=== PATIENT | female | born 1980 | race Caucasian/White ===

== ENCOUNTER → 2018-07-13 11:51 | Outpatient (CLI) | payer OTHER, SELFPAY | PROVIDERS: PCP Registered Nurse | DX: Z23 Encounter for immunization (principal) | CPT/HCPCS: 90471; 90686 ==

== ENCOUNTER → 2018-11-05 07:16 | Outpatient (CLI) | payer OTHER, SELFPAY ==
[2018-11-05 08:02] LABS: Add Manual Diff / Slide Review NO; Basophils Absolute Auto 0 /uL (0-100); Basophils Percent Auto 0.5 % (0-2); Eosinophils Absolute Auto 100 /uL (0-450); Hematocrit 38.6 % (36-46); Hemoglobin 13.2 g/dL (12.0-16.0); Lymphocytes Absolute Auto 2300 /uL (1100-4500); Lymphocytes Percent Auto 43.5 % (25-40); Mean Corpuscular HGB Conc 34.2 % (30-36); Mean Corpuscular Hemoglobin 31.6 PG (26-34); Mean Corpuscular Volume 92.4 fL (80-100); Monocytes Absolute Auto 400 /uL (0-900); Monocytes Percent Auto 7.7 % (3-14); Neutrophils Absolute Auto 2400 /uL (1500-7000); Neutrophils Percent Auto 46.3 % (50-75); Platelet Count 305 X10^3/uL (150-400); Red Blood Cell Count 4.17 X10^6/uL (4.0-5.2); Red Cell Distribution Width 12.8 % (11.6-14.8); White Blood Cell Count 5.2 X10^3/uL (4.5-11.0)
[2018-11-05 08:55] LABS: Alanine Aminotransferase 19 IU/L (9-52); Albumin 4.4 g/dL (3.5-5.0); Albumin Globulin Ratio 1.4 (1.0-2.8); Alkaline Phosphatase 39 U/L (38-126); Aspartate Aminotransferase 25 IU/L (14-36); Bilirubin Total 0.7 mg/dL (0.2-1.3); Blood Urea Nitrogen 14 mg/dL (7-17); Calcium 9.5 mg/dL (8.4-10.2); Carbon Dioxide 27 mmol/L (22-32); Chloride 102 mmol/L (98-107); Cholesterol 222 mg/dL (140-199); Estimated Glomerular Filt Rate > 60.0 mL/min (>60); Globulin 3.2 g/dL (1.7-4.1); Glucose 85 mg/dL (70-100); HDL Cholesterol 54 mg/dL (40-60); HEMOLYSIS < 15 (0-50); LDL Cholesterol Calculated 144 mg/dL (<100); Potassium 4.2 mmol/L (3.4-5.1); Sodium 138 mmol/L (137-145); Total Protein 7.6 g/dL (6.3-8.2); Triglycerides 122 mg/dL (35-150)
[2018-11-05 09:04] LABS: Vitamin D 25 Hydroxy (D3) 40.1 ng/mL (30.0-100.0)
[2018-11-05 09:20] LABS: Thyroid Stimulating Hormone 3.24 uIU/mL (0.47-4.68)
== END ==
PROVIDERS: PCP Registered Nurse; Visit Provider Registered Nurse
DX: Z00.00 Encounter for general adult medical examination without abnormal findings (principal); R53.83 Other fatigue
CPT/HCPCS: 36415; 80053; 80061; 82306; 84443; 85025

== ENCOUNTER → 2019-07-21 18:21 | Outpatient (CLI) | payer OTHER, SELFPAY | PROVIDERS: PCP Registered Nurse | DX: Z23 Encounter for immunization (principal) | CPT/HCPCS: 90471; 90686 ==

== ENCOUNTER → 2020-07-12 | Outpatient (CLI) | payer OTHER, SELFPAY | PROVIDERS: PCP Registered Nurse; Referring Provider Internal Medicine; Visit Provider Internal Medicine | DX: Z23 Encounter for immunization (principal) | CPT/HCPCS: 90471; 90686 ==

== ENCOUNTER → 2020-10-17 13:31 | Outpatient (CLI) | payer OTHER, SELFPAY ==
[2020-10-17] MEDS: COVID-19 VACC(MODERNA-1)/PF 100 MCG/0.5 ML VIAL IM (13:37)
== END ==
PROVIDERS: Visit Provider Internal Medicine
DX: Z23 Encounter for immunization (principal)
CPT/HCPCS: 0011A; 91301

== ENCOUNTER → 2020-11-13 09:06 | Outpatient (CLI) | payer OTHER, SELFPAY ==
[2020-11-13] MEDS: COVID-19 VACC #2, MRNA(MOD) 100 MCG/0.5 ML VIAL IM (09:10)
== END ==
PROVIDERS: PCP Registered Nurse Diabetes Educator; Visit Provider Internal Medicine
DX: Z23 Encounter for immunization (principal)
CPT/HCPCS: 0012A; 91301

== ENCOUNTER → 2020-11-17 09:04 | Outpatient (CLI) | payer OTHER, SELFPAY ==
--- NOTE | 2020-11-17 09:06 | DI.MG.S_ITS ---
BILATERAL DIGITAL SCREENING MAMMOGRAM 3D/2D WITH CAD: 11/17/2020 CLINICAL: Routine screening. Family history of breast cancer. No prior exams were available for comparison. The tissue of both breasts is heterogeneously dense. This may lower the sensitivity of mammography. Current study was also evaluated with a Computer Aided Detection (CAD) system. There is a possible asymmetry in the right breast middle depth superior region seen on the mediolateral oblique view only with suggestion of architectural distortion associated with the asymmetry. No other significant masses, calcifications, or other findings are seen in either breast. IMPRESSION: INCOMPLETE: NEEDS ADDITIONAL IMAGING EVALUATION The possible asymmetry in the right breast is indeterminate. Additional views with possible ultrasound are recommended. This exam was interpreted at Station ID: [id number]. NOTE: For mammograms, a report in lay terms will be sent to the patient. Approximately 15% of breast malignancies will not be visualized mammographically. In the management of a palpable breast mass, a negative mammogram must not discourage biopsy of a clinically suspicious lesion. Electronically Signed By: Valeriano call/:11/19/2020 07:37:34 letter sent: Additional Imaging Needed ACR BI-RADS Category 0: Incomplete 3340F
== END ==
PROVIDERS: PCP Registered Nurse Diabetes Educator; Referring Provider Registered Nurse Diabetes Educator; Visit Provider Registered Nurse Diabetes Educator
DX: Z12.31 Encounter for screening mammogram for malignant neoplasm of breast (principal); Z80.3 Family history of malignant neoplasm of breast
CPT/HCPCS: 77063; 77067

== ENCOUNTER → 2020-11-27 07:13 | Outpatient (CLI) | payer OTHER, SELFPAY ==
[2020-11-27 08:06] LABS: Hematocrit 37.6 % (36-46); Hemoglobin 12.7 g/dL (12.0-16.0); Mean Corpuscular HGB Conc 33.8 % (30-36); Mean Corpuscular Hemoglobin 31.3 PG (26-34); Mean Corpuscular Volume 92.5 fL (80-100); Platelet Count 282 X10^3/uL (150-400); Red Blood Cell Count 4.07 X10^6/uL (4.0-5.2); Red Cell Distribution Width 12.5 % (11.6-14.8); White Blood Cell Count 5.1 X10^3/uL (4.5-11.0)
[2020-11-27 08:19] LABS: Alanine Aminotransferase 11 IU/L (<35); Albumin Globulin Ratio 1.3 (1.0-2.8); Alkaline Phosphatase 38 U/L (38-126); Aspartate Aminotransferase 21 IU/L (14-36); BUN Creatinine Ratio 22.4 (6-22); Bilirubin Total 0.5 mg/dL (0.2-1.3); Blood Urea Nitrogen 17 mg/dL (7-17); Calcium 9.2 mg/dL (8.4-10.2); Carbon Dioxide 30 mmol/L (22-32); Chloride 105 mmol/L (98-107); Cholesterol 216 mg/dL (140-199); Estimated Glomerular Filt Rate > 60.0 mL/min (>60); Glucose 91 mg/dL (70-100); HDL Cholesterol 60 mg/dL (40-60); HEMOLYSIS < 15 (0-50); LDL Cholesterol Calculated 141 mg/dL (<100); Potassium 3.8 mmol/L (3.4-5.1); Sodium 136 mmol/L (137-145); Triglycerides 75 mg/dL (35-150)
[2020-11-27 08:56] LABS: TSH w/ Reflex to FT4 2.45 uIU/mL (0.47-4.68)
== END ==
PROVIDERS: PCP Registered Nurse Diabetes Educator; Referring Provider Registered Nurse Diabetes Educator; Visit Provider Registered Nurse Diabetes Educator
DX: E78.5 Hyperlipidemia, unspecified (principal)
CPT/HCPCS: 36415; 80053; 80061; 84443; 85027

== ENCOUNTER → 2020-12-25 13:30 | Outpatient (CLI) | payer OTHER, SELFPAY ==
--- NOTE | 2020-12-25 | DI.MG.S_ITS ---
UNILATERAL RIGHT DIGITAL DIAGNOSTIC MAMMOGRAM 3D/2D WITH ADDITIONAL VIEWS: 12/25/2020 CLINICAL: Additional evaluation requested from prior study. Comparison is made to exam dated: 11/17/2020 [facility]. The tissue of right breast is heterogeneously dense. This may lower the sensitivity of mammography. With focal spot compression, and additional views, thepossible asymmetry in the right breast middle depth superior regionseen on screening mammography is less prominent, and partially resolves. No other significant masses or calcifications are seen in the breast. IMPRESSION: INCOMPLETE: NEEDS ADDITIONAL IMAGING EVALUATION Near complete resolution of screening mammography abnormality with additional views. Ultrasound evaluation to confirm resolution is recommended and was performed immediately following this exam. This exam was interpreted at Station ID: [id number]. NOTE: For mammograms, a report in lay terms will be sent to the patient. Approximately 15% of breast malignancies will not be visualized mammographically. In the management of a palpable breast mass, a negative mammogram must not discourage biopsy of a clinically suspicious lesion. Electronically Signed By: Reta lira/:12/25/2020 13:59:24 ACR BI-RADS Category 0: Incomplete 3340F
--- NOTE | 2020-12-25 13:34 | DI.US.S_ITS ---
LIMITED ULTRASOUND OF RIGHT BREAST AND AXILLA: 12/25/2020 CLINICAL: Additional evaluation requested from prior study. Comparison is made to exams dated: 12/25/2020 mammogram and 11/17/2020 mammogram - [facility]. Ultrasound of the right breast 11-1 o'clock, and axilla regions was performed. No significant abnormalities were seen sonographically in the right breast. Thickened focal fibrous tissue was found in the area of mammographic concern. IMPRESSION: NEGATIVE There is no sonographic abnormality and no sonographic evidence of malignancy. Normal overlapping fibrous tissue accounts for the mammographic appearance. Return to annual mammogram screening schedule is recommended. Findings and recommendations were conveyed to the patient at time of exam. This exam was interpreted at Station ID: [id number]. Electronically Signed By: Reta lira/:12/25/2020 14:32:45 letter sent: Normal Exam Ultrasound BI-RADS: 1 Negative
== END ==
PROVIDERS: PCP Registered Nurse Diabetes Educator; Referring Provider Registered Nurse Diabetes Educator; Visit Provider Registered Nurse Diabetes Educator
DX: R92.8 Other abnormal and inconclusive findings on diagnostic imaging of breast (principal)
CPT/HCPCS: 76642; 77065; G0279

== ENCOUNTER → 2021-07-23 | Outpatient (CLI) | payer OTHER, SELFPAY | PROVIDERS: PCP Registered Nurse Diabetes Educator; Referring Provider Internal Medicine; Visit Provider Internal Medicine | DX: Z23 Encounter for immunization (principal) | CPT/HCPCS: 90471; 90686 ==

== ENCOUNTER → 2021-08-23 09:19 | Outpatient (CLI) | payer OTHER, SELFPAY ==
[2021-08-23] MEDS: COVID-19 VACC #3, MRNA(MOD) 50 MCG/0.25 ML VIAL IM (09:22)
== END ==
PROVIDERS: PCP Registered Nurse Diabetes Educator; Visit Provider Internal Medicine
DX: Z23 Encounter for immunization (principal)
CPT/HCPCS: 0013A; 91301

== ENCOUNTER → 2022-04-12 08:08 | Outpatient (CLI) | payer OTHER, SELFPAY ==
[2022-04-12 09:03] LABS: Hematocrit 36.3 % (36-46); Hemoglobin 12.5 g/dL (12.0-16.0); Mean Corpuscular HGB Conc 34.5 % (30-36); Mean Corpuscular Hemoglobin 31.7 PG (26-34); Mean Corpuscular Volume 91.9 fL (80-100); Platelet Count 272 X10^3/uL (150-400); Red Blood Cell Count 3.95 X10^6/uL (4.0-5.2); White Blood Cell Count 4.3 X10^3/uL (4.5-11.0)
[2022-04-12 09:19] LABS: Alanine Aminotransferase 13 IU/L (<35); Albumin 4.4 g/dL (3.5-5.0); Albumin Globulin Ratio 1.5 (1.0-2.8); Alkaline Phosphatase 45 U/L (38-126); Aspartate Aminotransferase 26 IU/L (14-36); BUN Creatinine Ratio 15.8 (6-22); Bilirubin Total 0.7 mg/dL (0.2-1.3); Blood Urea Nitrogen 12 mg/dL (7-17); Calcium 8.8 mg/dL (8.4-10.2); Carbon Dioxide 29 mmol/L (22-32); Chloride 105 mmol/L (98-107); Cholesterol 211 mg/dL (140-199); Estimated Glomerular Filt Rate > 60 mL/min (>60); Globulin 2.9 g/dL (1.7-4.1); Glucose 92 mg/dL (70-100); HDL Cholesterol 55 mg/dL (40-60); HEMOLYSIS < 15 (0-50); LDL Cholesterol Calculated 141 mg/dL (<100); Potassium 3.8 mmol/L (3.4-5.1); Sodium 139 mmol/L (137-145); Total Protein 7.3 g/dL (6.3-8.2); Triglycerides 74 mg/dL (35-150)
== END ==
PROVIDERS: PCP Registered Nurse Diabetes Educator; Referring Provider Registered Nurse Diabetes Educator; Visit Provider Registered Nurse Diabetes Educator
DX: E78.5 Hyperlipidemia, unspecified (principal); Z83.49 Family history of other endocrine, nutritional and metabolic diseases
CPT/HCPCS: 36415; 80053; 80061; 84443; 85027

== ENCOUNTER → 2022-05-01 09:41 | Outpatient (CLI) | payer OTHER, SELFPAY ==
--- NOTE | 2022-05-01 | DI.MG.S_ITS ---
BILATERAL DIGITAL SCREENING MAMMOGRAM 3D/2D WITH CAD: 05/01/2022 CLINICAL: Routine screening. Family history of breast cancer. Comparison is made to exams dated: 12/25/2020 ultrasound, 12/25/2020 mammogram, and 11/17/2020 mammogram - [facility]. The tissue of both breasts is heterogeneously dense. This may lower the sensitivity of mammography. Current study was also evaluated with a Computer Aided Detection (CAD) system. No significant masses, calcifications, or other findings are seen in either breast. There has been no significant interval change. IMPRESSION: NEGATIVE There is no mammographic evidence of malignancy. A 1 year screening mammogram is recommended. Based on Tyrer-Cuzick model (a risk assessment model), the patient's lifetime risk is 70.7% and her 10 year risk is 29.0%. If a patient has an elevated risk, a more comprehensive evaluation should be considered and/or a referral to a genetic counselor. The [employer], [employer], and NCCN Guidelines advise the consideration of Breast MRI as an adjunct to screening mammography in patients whose Lifetime risk to develop breast cancer is 20% or higher. This exam was interpreted at Station ID: [id number]. NOTE: For mammograms, a report in lay terms will be sent to the patient. Approximately 15% of breast malignancies will not be visualized mammographically. In the management of a palpable breast mass, a negative mammogram must not discourage biopsy of a clinically suspicious lesion. Electronically Signed By: Valeriano reeves/carlos:05/01/2022 11:20:46 letter sent: Normal Exam ACR BI-RADS Category 1: Negative 3341F
== END ==
PROVIDERS: PCP Registered Nurse Diabetes Educator; Referring Provider Registered Nurse Diabetes Educator; Visit Provider Registered Nurse Diabetes Educator
DX: Z12.31 Encounter for screening mammogram for malignant neoplasm of breast (principal); Z80.3 Family history of malignant neoplasm of breast
CPT/HCPCS: 77063; 77067

== ENCOUNTER → 2022-07-08 08:43 | Outpatient (CLI) | payer OTHER, SELFPAY | PROVIDERS: PCP Registered Nurse Diabetes Educator; Referring Provider Internal Medicine; Visit Provider Internal Medicine | DX: Z23 Encounter for immunization (principal) | CPT/HCPCS: 90471; 90686 ==

== ENCOUNTER → 2023-05-06 07:49 | Outpatient (CLI) | payer OTHER, SELFPAY ==
--- NOTE | 2023-05-06 | DI.MG.S_ITS ---
BILATERAL DIGITAL SCREENING MAMMOGRAM 3D/2D WITH CAD: 05/06/2023 CLINICAL: Routine screening. Family history of breast cancer. Comparison is made to exams dated: 05/01/2022 mammogram, 12/25/2020 ultrasound, 12/25/2020 mammogram, and 11/17/2020 mammogram - . Both breasts are heterogeneously dense, which may obscure small masses (category c / 51-75% glandular tissue). Current study was also evaluated with a Computer Aided Detection (CAD) system. No significant masses, calcifications, or other findings are seen in either breast. There has been no significant interval change. IMPRESSION: NEGATIVE There is no mammographic evidence of malignancy. A 1 year screening mammogram is recommended. Lifetime risk is significantly elevated. Recommend MRI supplemental screening. Based on Tyrer-Cuzick model (a risk assessment model), the patient's lifetime risk is 70.3% and her 10 year risk is 30.1%. If a patient has an elevated risk, a more comprehensive evaluation should be considered and/or a referral to a genetic counselor. The [place] [employer], [employer], and NCCN Guidelines advise the consideration of Breast MRI as an adjunct to screening mammography in patients whose Lifetime risk to develop breast cancer is 20% or higher. This exam was interpreted at Station ID: [id number]. NOTE: For mammograms, a report in lay terms will be sent to the patient. Approximately 15% of breast malignancies will not be visualized mammographically. In the management of a palpable breast mass, a negative mammogram must not discourage biopsy of a clinically suspicious lesion. Electronically Signed By: Crow Diggs M.D. lc/:05/06/2023 08:27:52 letter sent: Normal Exam ACR BI-RADS Category 1: Negative 3341F
== END ==
PROVIDERS: PCP Registered Nurse Diabetes Educator; Referring Provider Registered Nurse Diabetes Educator; Visit Provider Registered Nurse Diabetes Educator
DX: Z12.31 Encounter for screening mammogram for malignant neoplasm of breast (principal); Z80.3 Family history of malignant neoplasm of breast
CPT/HCPCS: 77063; 77067

== ENCOUNTER → 2023-08-13 | Outpatient (CLI) | payer OTHER, SELFPAY | PROVIDERS: PCP Registered Nurse Diabetes Educator; Referring Provider Family Medicine; Visit Provider Family Medicine | DX: Z23 Encounter for immunization (principal) | CPT/HCPCS: 90471; 90686 ==

== ENCOUNTER → 2023-11-10 11:33 | Outpatient (CLI) | payer OTHER, SELFPAY ==
--- NOTE | 2023-11-10 12:00 | DI.MRI.S_ITS ---
BREAST MRI OF BOTH BREASTS: 11/10/2023 CLINICAL: Family history of malignant neoplasm of breast. PROCEDURE: MR BREAST BI WO/W CON INDICATIONS: High risk breast cancer TECHNIQUE: The patient was placed prone in a dedicated breast imaging coil. Precontrast axial STIR and 3D FLASH without fat saturation sequences were obtained. Both before and after bolus injection of contrast, sequential 1-minute axial 3D FLASH with fat saturation sequences for 3 time points, with subtraction images and maximum intensity projections (MIP's) generated. Delayed sagittal FLASH images with fat saturation were also obtained. Computer-aided detection, including computer algorithm analysis of MRI image data for lesion detection and characterization, pharmacokinetic analysis, with further physician review for interpretation, was performed. COMPARISON: Mammogram 05/06/2023, 05/01/2022, 12/25/2020. FINDINGS: Image quality: Diagnostic. There is scattered amount of fibroglandular tissue. There is mild and symmetric background parenchymal enhancement. Right breast: No suspicious enhancement or lymphadenopathy. Left breast: No suspicious enhancement or lymphadenopathy. IMPRESSION: NEGATIVE No MRI evidence of malignancy. Recommend continued annual screening. Future imaging is recommended as follows: 05/06/2024 screening mammogram. This exam was interpreted at Station ID: [id number]. Electronically Signed By: Kasey Bello M.D., PH.D eb/:11/10/2023 22:37:17 ACR BI-RADS Category 1: Negative 3341F
== END ==
PROVIDERS: PCP Registered Nurse Diabetes Educator; Referring Provider Registered Nurse Diabetes Educator; Visit Provider Registered Nurse Diabetes Educator
DX: Z12.39 Encounter for other screening for malignant neoplasm of breast (principal); Z80.3 Family history of malignant neoplasm of breast
CPT/HCPCS: 77049; A9579

== ENCOUNTER → 2024-08-15 | Outpatient (CLI) | payer OTHER, SELFPAY | PROVIDERS: PCP Registered Nurse Diabetes Educator; Referring Provider Internal Medicine; Visit Provider Internal Medicine | DX: Z23 Encounter for immunization (principal) | CPT/HCPCS: 90471; 90656 ==

== ENCOUNTER → 2024-09-23 07:38 | Outpatient (CLI) | payer OTHER, SELFPAY ==
[2024-09-23 08:29] LABS: Add Manual Diff / Slide Review NO; Basophils Absolute Auto 0 /uL (0-100); Basophils Percent Auto 0.7 % (0-2); Eosinophils Absolute Auto 0 /uL (0-450); Eosinophils Percent Auto 0.4 % (2-4); Hematocrit 38.4 % (36-46); Lymphocytes Absolute Auto 1600 /uL (1100-4500); Lymphocytes Percent Auto 24.2 % (25-40); Mean Corpuscular Hemoglobin 31.2 PG (26-34); Mean Corpuscular Volume 91.8 fL (80-100); Monocytes Absolute Auto 300 /uL (0-900); Monocytes Percent Auto 4.8 % (3-14); Neutrophils Absolute Auto 4500 /uL (1500-7000); Neutrophils Percent Auto 69.9 % (50-75); Platelet Count 398 X10^3/uL (150-400); Red Blood Cell Count 4.18 X10^6/uL (4.0-5.2); Red Cell Distribution Width 13.2 % (11.6-14.8); White Blood Cell Count 6.4 X10^3/uL (4.5-11.0)
[2024-09-23 09:02] LABS: Alanine Aminotransferase 17 IU/L (<35); Albumin 4.2 g/dL (3.5-5.0); Albumin Globulin Ratio 1.4 (1.0-2.8); Alkaline Phosphatase 56 U/L (38-126); Aspartate Aminotransferase 28 IU/L (14-36); BUN Creatinine Ratio 17.7 (6-22); Bilirubin Total 0.7 mg/dL (0.2-1.3); Blood Urea Nitrogen 14 mg/dL (7-17); Calcium 9.8 mg/dL (8.4-10.2); Carbon Dioxide 25 mmol/L (22-32); Chloride 104 mmol/L (98-107); Cholesterol 248 mg/dL (140-199); Estimated Glomerular Filt Rate > 60 mL/min (>60); Glucose 101 mg/dL (70-100); HDL Cholesterol 74 mg/dL (40-60); HEMOLYSIS < 15 (0-50); LDL Cholesterol Calculated 158 mg/dL (<100); Potassium 4.3 mmol/L (3.4-5.1); Sodium 135 mmol/L (137-145); Total Protein 7.2 g/dL (6.3-8.2); Triglycerides 80 mg/dL (35-150)
[2024-09-23 09:13] LABS: Vitamin D 25 Hydroxy (D3) 36.5 ng/mL (30.0-100.0)
[2024-09-23 09:28] LABS: TSH w/ Reflex to FT4 1.48 uIU/mL (0.47-4.68)
== END ==
PROVIDERS: PCP Registered Nurse Diabetes Educator; Referring Provider Registered Nurse Diabetes Educator; Visit Provider Registered Nurse Diabetes Educator
DX: Z13.21 Encounter for screening for nutritional disorder (principal); Z13.9 Encounter for screening, unspecified; E78.5 Hyperlipidemia, unspecified
CPT/HCPCS: 36415; 80053; 80061; 82306; 84443; 85025

== ENCOUNTER → 2024-10-07 15:03 | Outpatient (CLI) | payer OTHER, SELFPAY ==
--- NOTE | 2024-10-07 15:04 | DI.MG.S_ITS ---
BILATERAL DIGITAL SCREENING MAMMOGRAM 3D/2D WITH CAD: 10/07/2024 CLINICAL: Routine screening. Family history of breast cancer. Comparison is made to exams dated: 05/06/2023 mammogram, 05/01/2022 mammogram, 11/17/2020 mammogram, and 12/25/2020 mammogram - [facility]. The breasts are heterogeneously dense, which may obscure small masses (category c / 51-75% glandular tissue). Current study was also evaluated with a Computer Aided Detection (CAD) system. There is an asymmetry in the right breast posterior depth lateral region seen on the craniocaudal view only. No other significant masses, calcifications, or other findings are seen in either breast. IMPRESSION: INCOMPLETE: NEED ADDITIONAL IMAGING EVALUATION The asymmetry in the right breast is indeterminate. A diagnostic mammogram and ultrasound is recommended. Based on Tyrer-Cuzick model (a risk assessment model), the patient's lifetime risk is 24.9% and her 10 year risk is 4.6%. If a patient has an elevated risk, a more comprehensive evaluation should be considered and/or a referral to a genetic counselor. The [place] [employer], [employer] [employer], and NCCN Guidelines advise the consideration of Breast MRI as an adjunct to screening mammography in patients whose Lifetime risk to develop breast cancer is 20% or higher. This exam was interpreted at Station ID: [id number]. NOTE: For mammograms, a report in lay terms will be sent to the patient. Approximately 15% of breast malignancies will not be visualized mammographically. In the management of a palpable breast mass, a negative mammogram must not discourage biopsy of a clinically suspicious lesion. Electronically Signed By: Kasey Bello M.D., Ph.D. eb/:10/10/2024 04:23:54 letter sent: Additional Imaging Needed ACR BI-RADS Category 0: Incomplete: Need Additional Imaging Evaluation
== END ==
PROVIDERS: PCP Registered Nurse Diabetes Educator; Referring Provider Registered Nurse Diabetes Educator; Visit Provider Registered Nurse Diabetes Educator
DX: Z12.31 Encounter for screening mammogram for malignant neoplasm of breast (principal); Z80.3 Family history of malignant neoplasm of breast; R92.333 Mammographic heterogeneous density, bilateral breasts
CPT/HCPCS: 77063; 77067

== ENCOUNTER → 2024-11-02 08:42 | Outpatient (CLI) | payer OTHER, SELFPAY ==
--- NOTE | 2024-11-02 08:44 | DI.US.S_ITS ---
LIMITED ULTRASOUND OF RIGHT BREAST AND AXILLA: 11/02/2024 CLINICAL: Patient returns today to evaluate a focal asymmetry in the right breast. Comparison is made to exams dated: 11/02/2024 mammogram, 10/07/2024 mammogram, 11/10/2023 breast MRI, 05/06/2023 mammogram, and 05/01/2022 mammogram - [facility]. Color flow and real-time ultrasound of the right breast 9-10 o'clock, and axilla regions were performed. Ramirez scale images of the real-time examination were reviewed. There is a 0.5 cm x 0.2 cm x 0.5 cm oval mass in the right breast at 9 o'clock middle depth 9 cm from the nipple. This oval mass is hypoechoic. This correlates as an incidental finding. Color flow imaging demonstrates that there is no vascularity present. No significant abnormalities were seen sonographically in the right axilla. IMPRESSION: PROBABLY BENIGN The 0.5 cm x 0.2 cm x 0.5 cm oval mass in the right breast has a differential diagnosis of clustered cysts, a complicated cyst, or a lymph node and is probably benign. There is no abnormality seen in the right breast to correspond with the mammography finding which likely represents normal fibroglandular tissue. A follow-up right mammogram and an ultrasound in 6 months is recommended to demonstrate stability. Findings and recommendations were conveyed to the patient during today's evaluation. This exam was interpreted at Station ID: [id number]. Electronically Signed By: Valeriano Arreguin M.D. at/:11/02/2024 10:24:47 letter sent: Followup Recommended ACR BI-RADS Category 3: Probably Benign
--- NOTE | 2024-11-02 08:44 | DI.MG.S_ITS ---
UNILATERAL RIGHT DIGITAL DIAGNOSTIC MAMMOGRAM 3D/2D WITH ADDITIONAL VIEWS: 11/02/2024 CLINICAL: Additional evaluation requested from prior study. Comparison is made to exams dated: 10/07/2024 mammogram, 05/06/2023 mammogram, 05/01/2022 mammogram, and 12/25/2020 [facility]. The breasts are heterogeneously dense, which may obscure small masses (category c / 51-75% glandular tissue). The previously described possible asymmetry in the right breast posterior depth lateral region seen on the craniocaudal view only. This is not seen in additional views. This is less prominent. No other significant masses or calcifications are seen in the breast. IMPRESSION: INCOMPLETE: NEED ADDITIONAL IMAGING EVALUATION The possible asymmetry in the right breast resembles fibroglandular tissue and is indeterminate. An ultrasound is recommended for further evaluation and is scheduled to immediately follow this examination. Based on Tyrer-Cuzick model (a risk assessment model), the patient's lifetime risk is 24.9% and her 10 year risk is 4.6%. If a patient has an elevated risk, a more comprehensive evaluation should be considered and/or a referral to a genetic counselor. The [place] [employer], [employer], and NCCN Guidelines advise the consideration of Breast MRI as an adjunct to screening mammography in patients whose Lifetime risk to develop breast cancer is 20% or higher. This exam was interpreted at Station ID: [id number]. NOTE: For mammograms, a report in lay terms will be sent to the patient. Approximately 15% of breast malignancies will not be visualized mammographically. In the management of a palpable breast mass, a negative mammogram must not discourage biopsy of a clinically suspicious lesion. Electronically Signed By: Valeriano Arreguin M.D. aty/:11/02/2024 09:35:48 letter sent: Additional Imaging Needed ACR BI-RADS Category 0: Incomplete: Need Additional Imaging Evaluation
== END ==
PROVIDERS: PCP Registered Nurse Diabetes Educator; Referring Provider Registered Nurse Diabetes Educator; Visit Provider Registered Nurse Diabetes Educator
DX: R92.8 Other abnormal and inconclusive findings on diagnostic imaging of breast (principal); R92.333 Mammographic heterogeneous density, bilateral breasts; N63.15 Unspecified lump in the right breast, overlapping quadrants
CPT/HCPCS: 76642; 77065; G0279

== ENCOUNTER 2024-11-15 08:54 | Outpatient (RCR) | payer OTHER, SELFPAY ==
--- NOTE | 2024-11-15 13:21 | PT.OIE ---
Current Diagnoses Feeling of incomplete bladder emptying (11/15/24) Urgency of urination (11/15/24) Unspecified symptoms and signs involving the genitourinary system (11/15/24) Past Medical History (Last Updated 09/30/24 @ 16:02 by WILL Werner) Acne (1995) At high risk for breast cancer Chicken pox (1983) Dyslipidemia History of malignant melanoma Impaired fasting blood sugar Vaginal delivery Past Surgical History (Last Reviewed 09/30/24 @ 15:49 by WILL Werner) Anesthesia Status post myringotomy with insertion of tube (1984) Visit Care Team Role Provider Type WILL Werner Attending Provider Advanced Director Data Processing Family Provider Primary Care Provider Referring Provider Specialty: Medical Address: [address] [place] [address], [facility] Email: [email or web address] Therapy Initial Evaluation PT-OP-A Visit Information Start: 11/15/24 08:24 Freq: Status: Active Protocol: Document 11/15/24 09:00 [facility] (Rec: 11/15/24 09:30 [facility] [id number]) Out-Patient Physical Therapy Visit Information Visit Information Visit Type Initial Evaluation Visit Start Time 09:02 Visit Stop Time 09:45 Visit Number 1 Evaluation Information Evaluation Date 11/15/24 PT-OP-B Current Condition Start: 11/15/24 08:24 Freq: Status: Active Protocol: Document 11/15/24 09:00 [facility] (Rec: 11/15/24 09:30 [facility] [id number]) Current Condition History of Current Condition Onset Date post her second vaginal delivery but within the last 2 -3 years Current Complaints not able to fully empty her bladder, hx of urinary urgency History of Current Condition pt notes she isn't feeling full bladder emptying , she will feel like she is fully emptied and she will stand up and then need to void more She urinates frequently approx every hour and has for a long time. She drinks fluids throughout the day. This bothers her if she is on a long car drive or where there is not toilets around. 2 cups of coffee in am and then she drinks water throughout the day. IF she is at work she will sometimes have another cup of coffee in afternoon. She will note a few days up to the first day of her cycle she will feel increased pelvic heaviness. She feels her bowel movements have changed and they have slowed down. She will sometimes feel a little constipated and she has to strain a little for bowel movements. She wakes up to void at least once per night. Treatment Goals Patient/Caregiver Goals Elvia's goals include improving ability to fully empty her bladder and to prevent any further pelvic heaviness or pressure PT-OP-I Pelvic Floor Start: 11/15/24 08:24 Freq: Status: Active Protocol: Document 11/15/24 09:00 [facility] (Rec: 11/15/24 17:04 [facility] [id number]) Pelvic Floor Assessment Urine Pelvic Floor Surgery No Urinary Symptoms Urge Sensation,Incomplete Emptying Leaks Per Day 0 Nocturia 1 Contraction Ability Voluntary Contraction Moderate Manual Muscle Testing Left 4 Manual Muscle Testing Right 4 Manual Muscle Testing Anterior 4 Manual Muscle Testing Posterior 4 Muscle Endurance (Seconds) 8 Comments Pelvic Floor Comments pt fatigues with 10 second hold and as she does consecutive reps she becomes more fatigued. Some tightness noted on the left lateral wall of the pelvic floor but no complaints of pain PT-OP-Q Treatments Start: 11/15/24 08:24 Freq: Status: Active Protocol: Document 11/15/24 09:00 [facility] (Rec: 11/15/24 17:03 [facility] [id number]) Therapeutic Exercises Supine Exercises pelvic floor long holds Supine Exercise Name HEP Reps/Minutes 10 sec hold x 10 reps resting 10 seconds in between Self-Care/Home Management Treatment Education Patient Education Home Exercise Program Other Education Elvia was educated on toileting positions to help with fully voiding, elevating arms and then bending forward, knees elevated with squatty potty, ILU self massage over the colon, castor oil pack over the liver at night to help increase bowel movements, bladder irritants and was given a bladder diary to track voids and bowel movements PT-OP-T Assessment and Plan Start: 11/15/24 08:24 Freq: Status: Active Protocol: Document 11/15/24 09:00 [facility] (Rec: 11/15/24 09:30 [facility] [id number]) Physical Therapy Assessment Rehab Potential Rehabilitation Potential Excellent Evaluation Complexity Number of Personal Factors/Comorbidities 0 Number of Body Systems Impaired 1-2 Clinical Presentation at Evaluation Stable Impairments Impairments Soft Tissue Mobility,Strength Other Impairments urinary urgency and incomplete voiding Goals 3 Impairment Decreased pelvic floor endurance Short Term Goal (STG) Elvia is able to sustain a pelvic floor contraction in supine x 10 seconds and complete 10 reps with a 10 second rest in between STG Duration 6 weeks 2 Impairment History of urinary urgency and frequency along with bowel movements that are becoming slower in the past couple of years and at times more difficult to pass Short Term Goal (STG) Eliva is educated on self abdominal massage and use of castor oil packs at night to help improve bowel movements. She is given a bladder diary to track voids and frequency of bowel movements STG Duration 4 weeks 1 Impairment Elvia reports incomplete emptying of her bladder Short Term Goal (STG) Elvia is educated on stretches to help relax the pelvic floor to encourage fully emptying of the bladder STG Duration 4 weeks Detention Goal (LTG) Elvia reports improvement with ability to fully empty her bladder LTG Duration 8 weeks Assessment Summary Assessment Elvia is a 44 year old female who presents to PT today with chief complaints of not being able to fully empty her bladder. She notes her symptoms have been increasing the the past couple of years and started after her last vaginal delivery. She also reports that she has a long history of urinary frequency and notes she is no able to go long between voids. She reports no stress incontinence symptoms and leaks only when standing after voiding due to not fully emptying. Elvia does describe pelvic heaviness and pressure a couple of days prior to her menstrual cycle starting. She also notes a change in her bowel movements the past couple of years where she is not as regular and does at times feels she may be a little constipated and may need to strain for a bowel movement. She reports voiding 7-10 times per day and 1 time at night. She will occasionally have urgency after going to the bathroom that she describes as mild. With evaluation today I assessed her abdominal wall and there is some fascial restrictions on the left side of the abdominal wall over the descending colon. No other fascial restrictions were found. Elvia was educated on the ILU abdominal massage especially for the descending colon to help with bowel movements With pelvic floor exam Elvia is able to contract all portions of the levator ani and has good sensation. She is tighter on the left side as compared to the right but did not have any tenderness in the pelvic floor. With endurance holds she does start to fatigue with a 10 second hold. She would benefit from working on endurance holds for the pelvic floor and she does have a home biofeedback unit the [employer] which will be helpful for her. She may also benefit from pelvic floor stretches for full relaxation of the pelvic floor for voiding. We discussed using a squatty potty to help improve voiding and she was given a bladder diary to track her voids. Elvia is a good candidate for PT Physical Therapy Plan Frequency and Duration Frequency of Treatment 1x/Week Duration of treatment (weeks) 8 Plan of Care Start Date 11/15/24 Plan of Care End Date 01/10/25 Therapeutic Interventions Therapeutic Interventions Home Exercise Program,Manual Therapy,Neuromuscular Re- education,Patient/Caregiver Education,Self-Care/Home Management,Therapeutic Exercises Next Visit Focus/Plan Next Note Type Treatment Note Next Visit Plan review abdominal massage and toileting positions, review bladder diary, educate Elvia on stretches for full pelvic floor relaxation with voiding, check in on pelvic floor endurance holds and begin the urge deference technique and bladder retraining
--- NOTE | 2024-12-01 16:47 | PT.OPDS ---
Current Diagnoses Feeling of incomplete bladder emptying (11/15/24) Urgency of urination (11/15/24) Unspecified symptoms and signs involving the genitourinary system (11/15/24) Visit Care Team Role Provider Type WILL Werner Attending Provider Advanced Conduit Bender Family Provider Primary Care Provider Referring Provider Specialty: Medical Address: [address] [place] [address], [facility] Email: [email or web address] Visit Number Visit Number 1 Discharge Summary PT-OP-B Current Condition Start: 11/15/24 08:24 Freq: Status: Active Protocol: Document 11/15/24 09:00 [facility] (Rec: 11/15/24 09:30 [facility] [id number]) Current Condition History of Current Condition Onset Date post her second vaginal delivery but within the last 2 -3 years Current Complaints not able to fully empty her bladder, hx of urinary urgency History of Current Condition pt notes she isn't feeling full bladder emptying , she will feel like she is fully emptied and she will stand up and then need to void more She urinates frequently approx every hour and has for a long time. She drinks fluids throughout the day. This bothers her if she is on a long car drive or where there is not toilets around. 2 cups of coffee in am and then she drinks water throughout the day. IF she is at work she will sometimes have another cup of coffee in afternoon. She will note a few days up to the first day of her cycle she will feel increased pelvic heaviness. She feels her bowel movements have changed and they have slowed down. She will sometimes feel a little constipated and she has to strain a little for bowel movements. She wakes up to void at least once per night. Treatment Goals Patient/Caregiver Goals Elvia's goals include improving ability to fully empty her bladder and to prevent any further pelvic heaviness or pressure PT-OP-I Pelvic Floor Start: 11/15/24 08:24 Freq: Status: Active Protocol: Document 11/15/24 09:00 [facility] (Rec: 11/15/24 17:04 [facility] [id number]) Pelvic Floor Assessment Urine Pelvic Floor Surgery No Urinary Symptoms Urge Sensation,Incomplete Emptying Leaks Per Day 0 Nocturia 1 Contraction Ability Voluntary Contraction Moderate Manual Muscle Testing Left 4 Manual Muscle Testing Right 4 Manual Muscle Testing Anterior 4 Manual Muscle Testing Posterior 4 Muscle Endurance (Seconds) 8 Comments Pelvic Floor Comments pt fatigues with 10 second hold and as she does consequtive reps she becomes more fatigued. Some tightness noted on the left lateral wall of the pelvic floor but no complaints of pain PT-OP-T Assessment and Plan Start: 11/15/24 08:24 Freq: Status: Active Protocol: Document 12/01/24 16:42 [facility] (Rec: 12/01/24 16:44 [facility] [id number]) Physical Therapy Assessment Assessment Summary Assessment Elvia called to cx her last visit in PT, She is ready for Discharge Physical Therapy Plan Discharge Physical Therapy Discharge Comments Elvia felt Ind with her home program and will be discharged at this time
== END 2024-12-08 08:44 | disposition home or self-care (01) ==
LOC: PHYS 08:54
PROVIDERS: Family Provider Registered Nurse Diabetes Educator; PCP Registered Nurse Diabetes Educator; Referring Provider Registered Nurse Diabetes Educator; Visit Provider Registered Nurse Diabetes Educator
DX: R39.14 Feeling of incomplete bladder emptying (principal); R39.15 Urgency of urination; R39.9 Unspecified symptoms and signs involving the genitourinary system
CPT/HCPCS: 97161; 97535

== ENCOUNTER → 2024-12-15 09:00 | Outpatient (CLI) | payer OTHER, SELFPAY ==
[2024-12-15 10:01] LABS: Hemoglobin A1C% w Est Avg Glu 4.8 % (4.0-6.0)
[2024-12-15 10:49] LABS: Ferritin 15 ng/mL (6-137)
== END ==
PROVIDERS: Family Provider Registered Nurse Diabetes Educator; PCP Registered Nurse Diabetes Educator; Referring Provider Nurse Practitioner Women's Health; Visit Provider Nurse Practitioner Women's Health
DX: R63.5 Abnormal weight gain (principal); R53.83 Other fatigue
CPT/HCPCS: 36415; 82728; 83036

== ENCOUNTER → 2025-04-25 08:53 | Outpatient (CLI) | payer OTHER, SELFPAY ==
--- NOTE | 2025-04-25 08:54 | DI.MG.S_ITS ---
US breast RT limited, MM diagnostic mammo unilat RT: 04/25/2025 BI-RADS: 3 CLINICAL: 45-year old female for right diagnostic mammogram and right diagnostic breast ultrasound that is a follow-up to ultrasound, right on 11/02/2024. Tyrer-Cuzick lifetime risk of 18.0%. No personal or first-degree family history of breast cancer. Current reported family history of breast cancer: paternal aunt's daughter. PRIOR EXAMS 11/02/2024, 10/07/2024, 11/10/2023, 05/06/2023, 05/01/2022, 12/25/2020, 11/17/2020. MAMMOGRAPHY TECHNIQUE: 2D and 3D (tomosynthesis) digital mammographic views obtained, with additional images as needed for full coverage. Current study was also evaluated with a Computer Aided Detection (CAD) system. ULTRASOUND TECHNIQUE TARGETED Right Breast Ultrasound: Real-time ultrasound exam was performed focused to area of clinical and/or imaging concern. Real-time ferraro scale and color doppler imaging of the area of clinical interest was performed with image documentation. DENSITY Right: C. The breasts are heterogeneously dense, which may obscure small masses. MAMMOGRAPHY FINDINGS Right: CC only, Outer, Posterior depth: Correlating with prior imaging concern, there is a stable asymmetry seen only on one view. This finding was less conspicuous on prior spot compression views and was favored to represent benign fibroglandular tissue. ULTRASOUND FINDINGS Right: Outer at 9:00, 9 cm from nipple, measuring 0.4 x 0.3 x 0.5 cm - previously measuring (11/02/2024) 0.5 x 0.2 x 0.5 cm: There is an oval, hypoechoic cyst vs solid mass that is parallel that is unchanged in size and appearance. IMPRESSION: Right (CvS): Outer at 9:00, 9 cm from nipple, measuring 0.4 x 0.3 x 0.5 cm - previously measuring (11/02/2024) 0.5 x 0.2 x 0.5 cm * Probably Benign. Right (Asymmetry): CC only, Outer, Posterior depth * Probably Benign. RECOMMENDATIONS Right: CC only, Outer, Posterior depth * Six month followup with diagnostic mammography. When the patient returns for short-term unilateral followup, a mammogram for the contralateral breast will also be due. Right: Outer at 9:00, 9 cm from nipple * Six month followup with diagnostic ultrasound. COMMENTS: Findings and recommendations were conveyed to the patient during today's evaluation. OVERALL ASSESSMENT CATEGORY BI-RADS-3: Probably Benign. ELECTRONICALLY SIGNED: Yareli Burton M.D. on 04/25/2025 at 10:00:11 AM PT Interpreting Station ID: [id number]
== END ==
LOC: MAMMO 08:53
PROVIDERS: Family Provider Registered Nurse Diabetes Educator; PCP Registered Nurse Diabetes Educator; Referring Provider Registered Nurse Diabetes Educator; Visit Provider Registered Nurse Diabetes Educator
DX: R92.8 Other abnormal and inconclusive findings on diagnostic imaging of breast (principal); N64.89 Other specified disorders of breast; R92.331 Mammographic heterogeneous density, right breast; Z80.3 Family history of malignant neoplasm of breast
CPT/HCPCS: 76642; 77065; G0279

== ENCOUNTER → 2025-05-05 10:45 | Outpatient (CLI) | payer OTHER, SELFPAY ==
--- NOTE | 2025-05-05 10:46 | DI.MRI.S_ITS ---
MR breast BI wo/w con: 05/05/2025. BI-RADS: 1 CLINICAL: 45-year old female referred for high risk breast cancer screening MRI. No personal or first-degree family history of breast cancer. Current reported family history of breast cancer: paternal aunt's daughter. PRIOR EXAMS: Breast MRI: 11/10/2023 Mammogram(s): 04/25/2025, 11/02/2024, 10/07/2024, 11/10/2023, 05/06/2023, 05/01/2022, 12/25/2020, 11/17/2020 Breast Ultrasound: 04/25/2025, 11/02/2024. MRI TECHNIQUE Bilateral breast MRI was performed on a 1.5 Adrianne magnet using a dedicated breast coil with mild compression. Axial T1 and T2 STIR sequences were obtained. Dynamic contrast enhanced VIBRANT fat-suppressed sequences were obtained. Delayed sagittal high resolution or sagittal reconstructed isotropic sequence was also obtained. Subtraction images and maximum intensity projection images were obtained. The study was evaluated using Red Lambda software. IV Contrast: 20 ml ProHance. FIBROGLANDULAR TISSUE Bilateral: B. Scattered fibroglandular tissue. BACKGROUND PARENCHYMAL ENHANCEMENT Bilateral: Mild symmetrical background parenchymal enhancement. BREAST FINDINGS Bilateral: No suspicious mass, suspicious non-mass enhancement, or other concerning finding identified. IMPRESSION: * No evidence of malignancy. RECOMMENDATIONS Bilateral * Recommend bilateral diagnostic mammogram and right breast ultrasound in October 2025 for follow up of previously described probably benign findings per imaging report 04/25/2025. OVERALL ASSESSMENT CATEGORY BI-RADS-1: Negative. ELECTRONICALLY SIGNED: Kasey Bello M.D. on 05/11/2025 at 12:06:32 PM PT Interpreting Station ID: [id number]
== END ==
LOC: MRI 10:46
PROVIDERS: Family Provider Registered Nurse Diabetes Educator; PCP Registered Nurse Diabetes Educator; Referring Provider Registered Nurse Diabetes Educator; Visit Provider Registered Nurse Diabetes Educator
DX: Z91.89 Other specified personal risk factors, not elsewhere classified (principal)
CPT/HCPCS: 77049; A9579

== ENCOUNTER → 2025-06-24 11:29 | Outpatient (CLI) | payer OTHER, SELFPAY ==
[2025-06-24 13:11] LABS: Hemoglobin A1C% w Est Avg Glu 5.0 % (4.0-6.0)
[2025-06-24 13:59] LABS: Ferritin 31 ng/mL (6-137)
== END ==
PROVIDERS: Family Provider Registered Nurse Diabetes Educator; PCP Registered Nurse Diabetes Educator; Referring Provider Registered Nurse Diabetes Educator; Visit Provider Registered Nurse Diabetes Educator
DX: E78.5 Hyperlipidemia, unspecified (principal); R73.01 Impaired fasting glucose
CPT/HCPCS: 36415; 82728; 83036

== ENCOUNTER → 2025-09-21 07:06 | Outpatient (CLI) | payer OTHER, SELFPAY ==
[2025-09-21 07:52] LABS: Hematocrit 39.0 % (36-46); Hemoglobin 13.2 g/dL (12.0-16.0); Mean Corpuscular HGB Conc 33.9 % (30-36); Mean Corpuscular Hemoglobin 31.2 PG (26-34); Mean Corpuscular Volume 92.0 fL (80-100); Platelet Count 334 X10^3/uL (150-400)
[2025-09-21 07:58] LABS: Hemoglobin A1C% w Est Avg Glu 4.8 % (4.0-6.0)
[2025-09-21 08:11] LABS: Alanine Aminotransferase 13 IU/L (<35); Albumin 4.5 g/dL (3.5-5.0); Albumin Globulin Ratio 1.7 (1.0-2.8); Alkaline Phosphatase 49 U/L (38-126); Blood Urea Nitrogen 17 mg/dL (7-17); Calcium 9.7 mg/dL (8.4-10.2); Carbon Dioxide 26 mmol/L (22-32); Chloride 104 mmol/L (98-107); Cholesterol 214 mg/dL (140-199); Estimated Glomerular Filt Rate > 60 mL/min (>60); Globulin 2.7 g/dL (1.7-4.1); Glucose 90 mg/dL (70-99); HDL Cholesterol 56 mg/dL (40-60); HEMOLYSIS < 15 (0-50); Potassium 4.1 mmol/L (3.4-5.1); Sodium 139 mmol/L (137-145); Total Protein 7.2 g/dL (6.3-8.2); Triglycerides 124 mg/dL (35-150)
[2025-09-21 08:38] LABS: TSH w/ Reflex to FT4 2.30 uIU/mL (0.47-4.68)
== END ==
PROVIDERS: Family Provider Registered Nurse Diabetes Educator; PCP Registered Nurse Diabetes Educator; Referring Provider Registered Nurse Diabetes Educator; Visit Provider Registered Nurse Diabetes Educator
DX: Z00.00 Encounter for general adult medical examination without abnormal findings (principal); E78.5 Hyperlipidemia, unspecified; R73.01 Impaired fasting glucose; R68.82 Decreased libido
CPT/HCPCS: 36415; 80053; 80061; 83036; 84403; 84443; 85027